=== PATIENT | female | born 1985 | race African-American/Black ===

== ENCOUNTER 2016-12-11 12:06 | Emergency (ER) | payer SELFPAY ==
[~2016-12-11] VITALS: Ht 160 cm; Wt 104.3 kg
[2016-12-11 12:30] VITALS: BP 120/74
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
[2016-12-11] MEDS ORDERED: HYDROcodone/APAP 5/325MG 1 TAB TABLET PO ONE (13:45)
[2016-12-11] MEDS ORDERED: OFLO5DRO OU (14:01)
== END 2016-12-11 14:30 | disposition home or self-care (01) ==
LOC: ER 12:06
DX: S00.12XA Contusion of left eyelid and periocular area, initial encounter (principal); S00.11XA Contusion of right eyelid and periocular area, initial encounter; Y04.2XXA Assault by strike against or bumped into by another person, initial encounter; Y93.89 Activity, other specified; Y92.89 Other specified places as the place of occurrence of the external cause; Y99.8 Other external cause status
CPT/HCPCS: 70450; 70486; 99284-25

== ENCOUNTER 2017-04-03 12:32 | Emergency (ER) | payer SELFPAY ==
[~2017-04-03] VITALS: Ht 162.6 cm; Wt 104.3 kg
[~2017-04-03 12:32] MED LIST: OFLO5DRO OU
[2017-04-03 12:50] VITALS: BP 133/73
[2017-04-03] MEDS ORDERED: FAMOTIDINE 20 MG TABLET. PO ONE (13:00)
[2017-04-03] MEDS ORDERED: ONDANSETRON ODT 4 MG TAB.RAPDIS. PO ONE (13:00)
[2017-04-03 13:15] LABS: BILIRUBIN,URINE NEGATIVE (NEG); GLUCOSE,URINE NEGATIVE (NEG); NITRITE,URINE POSITIVE (NEG); PH,URINE 6.5; PROTEIN,URINE NEGATIVE (NEG-TRACE)
[2017-04-03 13:45] LABS: BACTERIA,URINE MANY /HPF (0-FEW); RBC,URINE 0 /HPF (0-2); SQUAMOUS EPITHELIAL CELL,UR MOD /LPF
[2017-04-03] MEDS ORDERED: NITR100C62 PO (13:52)
[2017-04-03] MEDS ORDERED: FAMO-63 PO (13:52)
--- NOTE | 2017-04-03 13:53 | PHYS DOC ---
Past Medical History Past Medical History: No Pertinent History Past Surgical History: Cholecystectomy, Alcohol Use: None Drug Use: None Adult General Chief Complaint Chief Complaint: ABDOMINAL PAIN HPI HPI Patient is a 32 year old female presents the ED complaining of acid reflux times one day. Patient states she had spicy food for dinner last night. Describes the pain as burning. Rates the pain as 6 out of 10. Patient's last missed her period was over 1 month ago. Patient states she might be . Associated symptoms include nausea. Denies fever, vomiting, abdominal pain, weakness, dizziness, chest pain, shortness of breath, diarrhea or blood in stool. Review of Systems Review of Systems Constitutional: Denies fever or chills [] Eyes: Denies change in visual acuity, redness, or eye pain [] HENT: Denies nasal congestion or sore throat [] Respiratory: Denies cough or shortness of breath [] Cardiovascular: No additional information not addressed in HPI [] GI: Denies abdominal pain, vomiting, bloody stools or diarrhea [] : Denies dysuria or hematuria [] Musculoskeletal: Denies back pain or joint pain [] Integument: Denies rash or skin lesions [] Neurologic: Denies headache, focal weakness or sensory changes [] Endocrine: Denies polyuria or polydipsia [] All other systems were reviewed and found to be within normal limits, except as documented in this note. Current Medications Current Medications Current Medications Medications (Trade) Dose Ordered Sig/Violet Start Time Stop Time Status Last Admin Dose Admin Famotidine (Pepcid) 20 mg 1X ONCE 04/03/17 13:00 04/03/17 13:01 DC 04/03/17 13:17 20 MG Ondansetron HCl (Zofran Odt) 4 mg 1X ONCE 04/03/17 13:00 04/03/17 13:01 DC 04/03/17 13:18 4 MG Allergies Allergies Allergies Coded Allergies Type Severity Reaction Last Updated Verified No Known Drug Allergies 08/02/13 No Physical Exam Physical Exam Constitutional: Well developed, well nourished, no acute distress, non-toxic appearance. [] HENT: Normocephalic, atraumatic, bilateral external ears normal, oropharynx moist, no oral exudates, nose normal. [] Eyes: PERRLA, EOMI, conjunctiva normal, no discharge. [] Neck: Normal range of motion, no tenderness, supple, no stridor. [] Cardiovascular:Heart rate regular rhythm, no murmur [] Lungs & Thorax: Bilateral breath sounds clear to auscultation [] Abdomen: Bowel sounds normal, soft, no tenderness, no masses, no pulsatile masses. [] Skin: Warm, dry, no erythema, no rash. [] Back: No tenderness, no CVA tenderness. [] Extremities: No tenderness, no cyanosis, no clubbing, ROM intact, no edema. [] Neurologic: Alert and oriented X 3, normal motor function, normal sensory function, no focal deficits noted. [] Psychologic: Affect normal, judgement normal, mood normal. [] Current Patient Data Vital Signs Vital Signs Date Time Temp Pulse Resp B/P (MAP) Pulse Ox O2 Delivery O2 Flow Rate FiO2 04/03/17 12:50 98.4 70 16 133/73 (93) 100 Room Air 98.4 Lab Values Laboratory Tests Test 04/03/17 12:59 04/03/17 13:06 Urine Collection Type Unknown Urine Color Kim Urine Clarity Cloudy Urine pH 6.5 Urine Specific [place] >=1.030 Urine Protein Negative mg/dL (NEG-TRACE) Urine Glucose (UA) Negative mg/dL (NEG) Urine Ketones (Stick) Trace mg/dL (NEG) Urine Blood Negative (NEG) Urine Nitrite Positive (NEG) Urine Bilirubin Negative (NEG) Urine Urobilinogen Dipstick 1.0 mg/dL (0.2 mg/dL) Urine Leukocyte Esterase Small (NEG) Urine RBC 0 /HPF (0-2) Urine WBC 1-4 /HPF (0-4) Urine Squamous Epithelial Cells Mod /LPF Urine Bacteria Many /HPF (0-FEW) Urine Mucus Mod /LPF POC Urine HCG, Qualitative Hcg negative (Negative) EKG EKG [] Radiology/Procedures Radiology/Procedures [] Course & Med Decision Making Course & Med Decision Making Pertinent Labs and Imaging studies reviewed. (See chart for details) []Normal physical exam. Patient is not . Patient given medicine in ED. Patient's symptoms resolved. Patient states she is feeling much better. On reexamination, abdomen is soft nontender nondistended. No peritoneal signs. Discussed follow-up with PCP early this week. Discussed reasons to return to the ED. Patient understands and agrees with plan. Family at bedside. Dragon Disclaimer Dragon Disclaimer This electronic medical record was generated, in whole or in part, using a voice recognition dictation system. Departure Departure Impression: Primary Impression: Acid reflux Additional Impression: Urinary tract infection Disposition: HOME, SELF-CARE Condition: IMPROVED Referrals: NO PCP (PCP) UCHE MAHER MD Patient Instructions: Gastroesophageal Reflux Disease, Adult, Urinary Tract Infection Scripts Nitrofurantoin Monohyd/M-Cryst (MACROBID 100 MG CAPSULE) 100 Mg Capsule 1 CAP PO BID, #14 CAP Prov: GARIMA MANN 04/03/17 Famotidine (PEPCID) 20 Mg Tablet 20 MG PO HS, #10 TAB Prov: GARIMA MANN 04/03/17 Problem Qualifiers GARIMA MANN Apr 03, 2017 13:53
== END 2017-04-03 13:55 | disposition home or self-care (01) ==
LOC: ER 12:32
DX: K21.9 Gastro-esophageal reflux disease without esophagitis (principal); N39.0 Urinary tract infection, site not specified; Z90.49 Acquired absence of other specified parts of digestive tract; Z98.890 Other specified postprocedural states
CPT/HCPCS: 81001; 81025; 99283; Q0162

== ENCOUNTER 2017-06-13 23:52 | Emergency (ER) | payer SELFPAY ==
[2017-06-14 00:15] LABS: BILIRUBIN,URINE NEGATIVE (NEG); CLARITY,URINE CLEAR; COLOR,URINE YELLOW; GLUCOSE,URINE NEGATIVE (NEG); NITRITE,URINE POSITIVE (NEG); PH,URINE 6.5; PROTEIN,URINE NEGATIVE (NEG-TRACE)
[2017-06-14 00:15] LABS: URINE HCG POC HCG NEGATIVE (Negative)
[2017-06-14 00:23] LABS: BACTERIA,URINE MANY /HPF (0-FEW); RBC,URINE OCC /HPF (0-2); SQUAMOUS EPITHELIAL CELL,UR MOD /LPF
[2017-06-14 00:34] LABS: ADD MAN DIFF? NO
[2017-06-14 00:39] LABS: BASO # 0.1 x10^3/uL (0.0-0.2); BASO % 1 % (0-3); EOS # 0.2 x10^3/uL (0.0-0.7); EOS % 1 % (0-3); HEMATOCRIT 39.3 % (36.0-47.0); HEMOGLOBIN 13.3 g/dL (12.0-15.5); LYMPH # 2.7 x10^3/uL (1.0-4.8); LYMPH % 25 % (24-48); MEAN CORPUSCULAR HEMOGLOBIN 32 pg (25-35); MEAN CORPUSCULAR HGB CONC 34 g/dL (31-37); MEAN CORPUSCULAR VOLUME 95 fL (79-100); MONO # 0.9 x10^3/uL (0.0-1.1); MONO % 8 % (0-9); NEUT # 6.8 x10^3uL (1.8-7.7); NEUT % 64 % (31-73); PLATELET COUNT 273 x10^3/uL (140-400); RED BLOOD COUNT 4.15 x10^6/uL (3.50-5.40); WHITE BLOOD COUNT 10.7 x10^3/uL (4.0-11.0)
[2017-06-14 00:44] LABS: ANION GAP 8 (6-14); BLOOD UREA NITROGEN 8 mg/dL (7-20); BUN/CREATININE RATIO 10 (6-20); CALCIUM 9.3 mg/dL (8.5-10.1); CARBON DIOXIDE 31 mmol/L (21-32); CHLORIDE 104 mmol/L (98-107); CREATININE 0.8 mg/dL (0.6-1.0); GFR 101.2; GLUCOSE 106 mg/dL (70-99); SODIUM 143 mmol/L (136-145)
[2017-06-14 00:51] LABS: ALBUMIN 3.6 g/dL (3.4-5.0); ALK PHOS 68 U/L (46-116); ALT (SGPT) 15 U/L (14-59); AST (SGOT) 13 U/L (15-37); LIPASE 155 U/L (73-393); TOTAL BILIRUBIN 0.1 mg/dL (0.2-1.0); TOTAL PROTEIN 7.3 g/dL (6.4-8.2)
[2017-06-14] MEDS ORDERED: CONTRAST GIVEN MC (01:45)
[2017-06-14] MEDS: AZITHROMYCIN 250 MG TABLET. PO (01:46)
[2017-06-14] MEDS: IOHEXOL 300 MG/ML 100ML VIAL. IV (02:03)
[2017-06-15 15:31] LABS: CHLAMYDIA PROBE Negative (Negative); GC PROBE Negative (Negative)
== END 2017-06-14 02:59 | disposition home or self-care (01) ==
LOC: ER 23:52
DX: R10.31 Right lower quadrant pain (principal); R11.0 Nausea; R10.2 Pelvic and perineal pain; Z90.49 Acquired absence of other specified parts of digestive tract
CPT/HCPCS: 36415; 74177; 76830; 76856; 80053; 81001; 81025; 83690; 85025; 87086; 87186; 87491; 87591; 96365; 99285-25; J0690; Q0111; Q0144; Q9967

== ENCOUNTER 2017-09-05 10:49 | Emergency (ER) | payer SELFPAY ==
[2017-09-05 12:00] LABS: URINE HCG POC HCG NEGATIVE (Negative)
[2017-09-05] MEDS: KETOROLAC 60 MG/2 ML INJ. IM (12:03)
[2017-09-05] MEDS: diazePAM 5 MG TABLET PO (12:03)
[2017-09-05] MEDS: MORPHINE SULFATE 4 MG/ML DISP.SYRIN. IM (12:03)
[2017-09-05 12:34] LABS: BILIRUBIN,URINE NEGATIVE (NEG); CLARITY,URINE CLOUDY; COLOR,URINE YELLOW; GLUCOSE,URINE NEGATIVE (NEG); NITRITE,URINE POSITIVE (NEG); PH,URINE 6.5; PROTEIN,URINE 30 mg/dL (NEG-TRACE); UROBILINOGEN,URINE 0.2 mg/dL (0.2 mg/dL)
[2017-09-05 12:58] LABS: SQUAMOUS EPITHELIAL CELL,UR OCC /LPF
[2017-09-05 12:59] LABS: BACTERIA,URINE MANY /HPF (0-FEW); WBC,URINE >40 /HPF (0-4)
== END 2017-09-05 13:55 | disposition home or self-care (01) ==
LOC: ER 10:49
DX: N13.6 Pyonephrosis (principal); N39.0 Urinary tract infection, site not specified; Z90.49 Acquired absence of other specified parts of digestive tract; Z98.51 Tubal ligation status; Z98.890 Other specified postprocedural states
CPT/HCPCS: 81001; 81025; 87086; 96372; 99284-25; J1885; J2270

== ENCOUNTER 2018-07-17 20:10 | Emergency (ER) | payer OTHER ==
[~2018-07-17] VITALS: Ht 160 cm; Wt 108.9 kg
[~2018-07-17 20:10] MED LIST changes: +CIPR500T94 PO; +FAMO-63 PO; +HYDR-2761 PO; +NITR100C62 PO; +ONDA4TAB10 SL; +PHEN-318 PO
[2018-07-17 20:32] LABS: BILIRUBIN,URINE NEGATIVE (NEG); CLARITY,URINE CLEAR; COLOR,URINE YELLOW; NITRITE,URINE NEGATIVE (NEG); PROTEIN,URINE NEGATIVE (NEG-TRACE)
[2018-07-17 20:41] LABS: BACTERIA,URINE 0 /HPF (0-FEW); RBC,URINE 0 /HPF (0-2); SQUAMOUS EPITHELIAL CELL,UR MOD /LPF; WBC,URINE RARE /HPF (0-4)
[2018-07-17 21:03] LABS: BASO % 0 % (0-3); EOS # 0.1 x10^3/uL (0.0-0.7); EOS % 2 % (0-3); HEMOGLOBIN 12.7 g/dL (12.0-15.5); LYMPH # 2.9 x10^3/uL (1.0-4.8); LYMPH % 33 % (24-48); MEAN CORPUSCULAR HEMOGLOBIN 31 pg (25-35); MEAN CORPUSCULAR HGB CONC 33 g/dL (31-37); MEAN CORPUSCULAR VOLUME 93 fL (79-100); MONO # 0.6 x10^3/uL (0.0-1.1); MONO % 7 % (0-9); NEUT # 5.1 x10^3uL (1.8-7.7); NEUT % 58 % (31-73); PLATELET COUNT 251 x10^3/uL (140-400); RED BLOOD COUNT 4.08 x10^6/uL (3.50-5.40); WHITE BLOOD COUNT 8.9 x10^3/uL (4.0-11.0)
--- NOTE | 2018-07-17 21:07 | PHYS DOC ---
Past Medical History Past Medical History: No Pertinent History Past Surgical History: Cholecystectomy, , Tubal ligation Alcohol Use: Occasionally Drug Use: None Adult General Chief Complaint Chief Complaint: VAGINAL BLEEDING HPI HPI Patient is a 33 year old female with no significant medical history who presents to the ED today complaining of vaginal bleeding. Patient states since March 2018 she is having 2 cycles every month. She states the current cycle began July 12, 2018, she states she already had another cycle June 28, 2018 which is her normal cycle. Patient denies any abdominal pain, denies any cramping, denies any chance she is , denies any concerns for STDs. She states the bleeding is minimal sometimes just spotting. Review of Systems Review of Systems Constitutional: Denies fever or chills [] Eyes: Denies change in visual acuity, redness, or eye pain [] HENT: Denies nasal congestion or sore throat [] Respiratory: Denies cough or shortness of breath [] Cardiovascular: No additional information not addressed in HPI [] GI: Denies abdominal pain, nausea, vomiting, bloody stools or diarrhea [] Female -reports vaginal bleeding : Denies dysuria or hematuria [] Musculoskeletal: Denies back pain or joint pain [] Integument: Denies rash or skin lesions [] Neurologic: Denies headache, focal weakness or sensory changes [] All other systems were reviewed and found to be within normal limits, except as documented in this note. Current Medications Current Medications Current Medications Medications (Trade) Dose Ordered Sig/Violet Start Time Stop Time Status Last Admin Dose Admin Azithromycin (Zithromax) 1,000 mg 1X ONCE 07/17/18 22:00 07/17/18 22:01 UNV Ceftriaxone Sodium (Rocephin Im) 250 mg 1X ONCE 07/17/18 22:00 07/17/18 22:01 UNV Metronidazole (Flagyl) 2,000 mg 1X ONCE 07/17/18 22:00 07/17/18 22:01 UNV Allergies Allergies Allergies Coded Allergies Type Severity Reaction Last Updated Verified No Known Drug Allergies 08/02/13 No Physical Exam Physical Exam Constitutional: Well developed, well nourished, no acute distress, non-toxic appearance. [] HENT: Normocephalic, atraumatic, bilateral external ears normal, oropharynx moist, no oral exudates, nose normal. [] Eyes: PERRLA, EOMI, conjunctiva normal, no discharge. [] Neck: Normal range of motion, no tenderness, supple, no stridor. [] Cardiovascular:Heart rate regular rhythm, no murmur [] Lungs & Thorax: Bilateral breath sounds clear to auscultation [] Abdomen: Bowel sounds normal, soft, no tenderness, no masses, no pulsatile masses. [] Pelvic exam External pelvic appears normal, cervix is visualized, closed, no CMT, no adnexal tenderness, trace amount of brownish discharge consistent with spotting in the vaginal vault. Skin: Warm, dry, no erythema, no rash. [] Back: No tenderness, no CVA tenderness. [] Extremities: No tenderness, no cyanosis, no clubbing, ROM intact, no edema. [] Neurologic: Alert and oriented X 3, normal motor function, normal sensory function, no focal deficits noted. [] Psychologic: Affect normal, judgement normal, mood normal. [] Current Patient Data Vital Signs Vital Signs Date Time Temp Pulse Resp B/P (MAP) Pulse Ox O2 Delivery O2 Flow Rate FiO2 07/17/18 20:21 97.8 77 16 108/58 (75) 98 Room Air 97.8 Lab Values Laboratory Tests Test 07/17/18 20:23 07/17/18 20:26 07/17/18 20:57 Urine Collection Type Unknown Urine Color Yellow Urine Clarity Clear Urine pH 6.0 Urine Specific [place] >=1.030 Urine Protein Negative mg/dL (NEG-TRACE) Urine Glucose (UA) Negative mg/dL (NEG) Urine Ketones (Stick) Negative mg/dL (NEG) Urine Blood Negative (NEG) Urine Nitrite Negative (NEG) Urine Bilirubin Negative (NEG) Urine Urobilinogen Dipstick 1.0 mg/dL (0.2 mg/dL) Urine Leukocyte Esterase Negative (NEG) Urine RBC 0 /HPF (0-2) Urine WBC Rare /HPF (0-4) Urine Squamous Epithelial Cells Mod /LPF Urine Bacteria 0 /HPF (0-FEW) Urine Mucus Marked /LPF POC Urine HCG, Qualitative Hcg negative (Negative) White Blood Count 8.9 x10^3/uL (4.0-11.0) Red Blood Count 4.08 x10^6/uL (3.50-5.40) Hemoglobin 12.7 g/dL (12.0-15.5) Hematocrit 38.0 % (36.0-47.0) Mean Corpuscular Volume 93 fL (79-100) Mean Corpuscular Hemoglobin 31 pg (25-35) Mean Corpuscular Hemoglobin Concent 33 g/dL (31-37) Red Cell Distribution Width 13.0 % (11.5-14.5) Platelet Count 251 x10^3/uL (140-400) Neutrophils (%) (Auto) 58 % (31-73) Lymphocytes (%) (Auto) 33 % (24-48) Monocytes (%) (Auto) 7 % (0-9) Eosinophils (%) (Auto) 2 % (0-3) Basophils (%) (Auto) 0 % (0-3) Neutrophils # (Auto) 5.1 x10^3uL (1.8-7.7) Lymphocytes # (Auto) 2.9 x10^3/uL (1.0-4.8) Monocytes # (Auto) 0.6 x10^3/uL (0.0-1.1) Eosinophils # (Auto) 0.1 x10^3/uL (0.0-0.7) Basophils # (Auto) 0.0 x10^3/uL (0.0-0.2) Sodium Level 141 mmol/L (136-145) Potassium Level 4.1 mmol/L (3.5-5.1) Chloride Level 104 mmol/L (98-107) Carbon Dioxide Level 29 mmol/L (21-32) Anion Gap 8 (6-14) Blood Urea Nitrogen 13 mg/dL (7-20) Creatinine 0.7 mg/dL (0.6-1.0) Estimated GFR (Cockcroft-Gault) 117.3 BUN/Creatinine Ratio 19 (6-20) Glucose Level 96 mg/dL (70-99) Calcium Level 9.0 mg/dL (8.5-10.1) Total Bilirubin 0.2 mg/dL (0.2-1.0) Aspartate Amino Transferase (AST) 16 U/L (15-37) Alanine Aminotransferase (ALT) 21 U/L (14-59) Alkaline Phosphatase 72 U/L (46-116) Total Protein 7.3 g/dL (6.4-8.2) Albumin 3.5 g/dL (3.4-5.0) Albumin/Globulin Ratio 0.9 (1.0-1.7) L Laboratory Tests 07/17/18 20:57 Laboratory Tests 07/17/18 20:57 Microbiology 07/17/18 Wet Prep - Final, Complete EKG EKG [] Radiology/Procedures Radiology/Procedures []PROCEDURE: TRANSVAGINAL Indication:VAG BLEEDING TECHNIQUE: Grayscale, color Doppler and spectral waveform images of the pelvis obtained. COMPARISON:None FINDINGS: Uterus is retroverted and measures 9.4 x 5.2 x 5.5 cm (nodule, AP, transverse). Nabothian cyst seen in the cervix. Endometrial stripe measures 9 mm in thickness without vascularity. Right ovary measures 2.0 x 3.1 x 2.0 cm with multiple follicles and shows blood flow. Left ovary measures 2.5 x 3.2 x 2.5 cm with multiple follicles and shows blood flow. No free pelvic fluid. IMPRESSION: No acute findings. Electronically signed by: Yasmany Cortez DO (07/17/2018 9:52 PM) [facility] DICTATED and SIGNED BY: YASMANY CORTEZ DO DATE: 07/17/182143 Course & Med Decision Making Course & Med Decision Making Pertinent Labs and Imaging studies reviewed. (See chart for details) This is a 33-year-old female patient presenting to the ED today complaining of vaginal bleeding. Patient states she is receiving 2 cycles every month. She had a cycle June 28, 2018 which is her normal cycle, she states another cycle began July 12, 2018 and she's been spotting since then. On pelvic exam spotting is noted. Negative urine hCG, wet prep noted for BV. Urine analysis is negative for infection. Abdominal ultrasound is negative for any acute findings. Results were given to patient, she started asking for STD treatment. Given prophylaxis treatment. Education provided. Follow-up with [facility]. Dong Disclaimer Kelion Disclaimer This electronic medical record was generated, in whole or in part, using a voice recognition dictation system. Departure Departure Impression: Primary Impression: Dysfunctional uterine bleeding Additional Impressions: Bacterial vaginosis Concern about STD in female without diagnosis Disposition: 01 HOME, SELF-CARE Condition: STABLE Referrals: NO PCP (PCP) DAISY PARK MD Follow-up in one week Patient Instructions: Bacterial Vaginosis, [id number], Uterine Bleeding, Dysfunctional Additional Instructions: You were evaluated in the emergency room for dysfunctional uterine bleeding we also treated you prophylaxis for sexually transmitted diseases. You also have bacterial vaginosis. Follow-up with your [facility] [facility] on the one provided in the next 1 week. Come back to the ED at any point symptoms worsen. Scripts Metronidazole (FLAGYL) 500 Mg Tablet 1 TAB PO BID, #10 TAB Prov: AIDEE SCOTT APRN 07/17/18 Problem Qualifiers AIDEE SCOTT APRN Jul 17, 2018 21:07
[2018-07-17 21:18] LABS: CREATININE 0.7 mg/dL (0.6-1.0); GFR 117.3; POTASSIUM 4.1 mmol/L (3.5-5.1)
[2018-07-17 21:24] LABS: ALBUMIN 3.5 g/dL (3.4-5.0); ALBUMIN/GLOBULIN RATIO 0.9 (1.0-1.7); TOTAL BILIRUBIN 0.2 mg/dL (0.2-1.0); TOTAL PROTEIN 7.3 g/dL (6.4-8.2)
--- NOTE | 2018-07-17 21:55 | RAD ---
Indication:VAG BLEEDING TECHNIQUE: Grayscale, color Doppler and spectral waveform images of the pelvis obtained. COMPARISON:None FINDINGS: Uterus is retroverted and measures 9.4 x 5.2 x 5.5 cm (nodule, AP, transverse). Nabothian cyst seen in the cervix. Endometrial stripe measures 9 mm in thickness without vascularity. Right ovary measures 2.0 x 3.1 x 2.0 cm with multiple follicles and shows blood flow. Left ovary measures 2.5 x 3.2 x 2.5 cm with multiple follicles and shows blood flow. No free pelvic fluid. IMPRESSION: No acute findings. Electronically signed by: Yasmany Louis DO (07/17/2018 9:52 PM) [employer]
[2018-07-17 22:00] VITALS: BP 96/56
[2018-07-17] MEDS ORDERED: AZITHROMYCIN 250 MG TABLET. PO ONE (22:00)
[2018-07-17] MEDS ORDERED: metroNIDAZOLE 500 MG TABLET PO ONE (22:00)
[2018-07-17] MEDS ORDERED: cefTRIAXone IM 250 MG VIAL IM ONE (22:00)
[2018-07-17] MEDS ORDERED: METR500T PO (22:06)
[2018-07-19 13:21] LABS: GC PROBE Negative (Negative)
== END 2018-07-17 21:45 | disposition home or self-care (01) ==
LOC: ER 20:10
DX: N93.8 Other specified abnormal uterine and vaginal bleeding (principal); N76.0 Acute vaginitis; B96.89 Other specified bacterial agents as the cause of diseases classified elsewhere; Z20.2 Contact with and (suspected) exposure to infections with a predominantly sexual mode of transmission; Z90.49 Acquired absence of other specified parts of digestive tract; Z98.51 Tubal ligation status
CPT/HCPCS: 36415; 76830; 80053; 81001; 81025; 85025; 87491; 87591; 96372; 99284; J0696; Q0111; Q0144